=== PATIENT | female | born 1980 | race Caucasian/White ===

== ENCOUNTER 2017-01-18 15:38 | Inpatient (IN) | payer MEDICARE ==
[~2017-01-18] VITALS: Ht 157.5 cm; Wt 67.0 kg
[~2017-01-18 15:38] MED LIST: ADDERALL30 MG OR; AMOXICILLIN500 MG PO; BACTRIM DS1 TAB PO; CELEXA40 M1 OR; CIPROFLOXACN500 MG OR; CIPROFLOXACN500 MG PO; CLEOCIN150 MG PO; DENIES CURRENT MEDS; DOXYCYCL HYC100 MG PO; FERROUS SULF324 M1 PO; FLEXERIL OR; IBUPROFEN600 MG PO; KEFLEX500 M1 PO; LISINOP/HCTZ1 TA1 PO; LISINOPRIL10 M1 PO; LORTAB 10-325 M1 TAB PO; LORTAB 1010 MG PO; LORTAB 5/3255 MG PO; LORTAB 7.5 OR; LOTENSIN5 MG OR; METRONIDAZOL250 MG PO; NAPROSYN375 MG PO; NAPROSYN500 MG OR; NO; PERCOCET 5/325M1 TAB OR; PERCOCET 5/325M1 TAB PO; PREMARIN VAG0.625 MG PO; RIFADIN300 MG PO; ROCEPHIN 2250 MG/VIA IM; TORADOL OR; TRAMADOL HCL50 MG PO; ULTRAM50 M1 PO; ULTRAM50 MG OR; VISTARIL25 MG OR; XANAX0.5 MG OR
[2017-01-18 16:33] LABS: HEMATOCRIT 42.7 % (37.0-47.0); HEMOGLOBIN 13.7 g/dl (12.0-16.0); IMMATURE GRANULOCYTES 0.8 % (0.0-1.0); MEAN CORPUSCULAR HGB 29.5 pG CALC (26.0-32.0); MEAN CORPUSCULAR HGB CONC 32.1 g/L CALC (32.0-36.0); NEUT# 10.82 thou/uL (2.00-7.15); RED BLOOD COUNT 4.64 mill/uL (4.20-5.60); RED CELL DISTRI WIDTH 17.9 % (11.5-15.5)
[2017-01-18 16:39] LABS: URINE BILIRUBIN - DIPSTICK NEGATIVE (NEGATIVE); URINE BLOOD DIPSTICK LARGE (NEGATIVE); URINE CLARITY CLOUDY; URINE COLOR AMBER; URINE GLUCOSE - DIPSTICK NEGATIVE (NEGATIVE); URINE KETONE NEGATIVE (NEGATIVE); URINE LEUK ESTERASE MODERATE (NEGATIVE); URINE NITRITE - DIPSTICK POSITIVE (Negative); URINE PROTEIN - DIPSTICK 100 mg/dL (NEG-TRACE); URINE RBC 25-50 RBC/hpf (0-5); URINE SPECIFIC GRAVITY 1.025
[2017-01-18 16:40] LABS: URINE BACTERIA MANY hpf; URINE SQUAMOUS EPITHELIAL CELL FEW EPI/hpf (0-FEW); URINE WBC 20-50 WBC/hpf (0-5)
[2017-01-18 16:57] LABS: ALBUMIN 3.9 g/dL (3.2-5.0); ALKALINE PHOSPHATASE 132 u/l (38-126); ANION GAP 16 (6-22 (CALC)); BILIRUBIN, TOTAL 1.5 mg/dL (0.0-1.4); BUN 8 mg/dL (7-17); BUN/CREATININE RATIO 9 (12-20 (CALC)); CALCIUM 8.6 mg/dL (8.4-10.2); CARBON DIOXIDE 23 mmol/l (22-30); CHLORIDE 94 mmol/l (95-108); CREATININE 0.9 mg/dL (0.5-1.0); GFR > 60 ML/MIN (>=60 (CALC)); GFR FOR AFR.AMER. > 60 ML/MIN (>=60 (CALC)); GLUCOSE 219 mg/dL (65-105); POTASSIUM 4.1 mmol/l (3.5-5.1); SGOT/AST 118 u/l (14-36); SGPT/ALT 31 u/l (9-52); SODIUM 128 mmol/l (137-146)
[2017-01-18] MEDS ORDERED: MOTRIN800 MG PO (17:10)
[2017-01-18] MEDS ORDERED: PYRIDIUM200 MG PO (17:10)
[2017-01-18] MEDS ORDERED: BACTRIM DS1 TAB PO (17:10)
[2017-01-18 18:27] LABS: COCAINE NEGATIVE (NEGATIVE); METHADONE NEGATIVE (NEGATIVE); TETRAHYDROCANNABIONOL NEGATIVE (NEGATIVE)
[2017-01-18 18:28] LABS: BARBITURATES NEGATIVE (NEGATIVE); OXCYCODONE NEGATIVE (NEGATIVE); TRICYLIC ANTIDEPRESSANTS NEGATIVE (NEGATIVE)
[2017-01-18 19:20] VITALS: BP 132/94
[2017-01-19 04:30] VITALS: BP 152/86
[2017-01-19 05:23] LABS: BUN 9 mg/dL (7-17); BUN/CREATININE RATIO 13 (12-20 (CALC)); CALCIUM 8.3 mg/dL (8.4-10.2); CARBON DIOXIDE 22 mmol/l (22-30); CREATININE 0.7 mg/dL (0.5-1.0); GFR > 60 ML/MIN (>=60 (CALC)); GFR FOR AFR.AMER. > 60 ML/MIN (>=60 (CALC)); GLUCOSE 139 mg/dL (65-105); POTASSIUM 3.8 mmol/l (3.5-5.1)
[2017-01-19 05:25] LABS: HEMATOCRIT 39.3 % (37.0-47.0); HEMOGLOBIN 12.4 g/dl (12.0-16.0); MEAN CELL VOLUME 95.6 fL CALC (80.0-100.0); MEAN CORPUSCULAR HGB 30.2 pG CALC (26.0-32.0); MEAN CORPUSCULAR HGB CONC 31.6 g/L CALC (32.0-36.0); RED BLOOD COUNT 4.11 mill/uL (4.20-5.60)
[2017-01-19 05:27] LABS: ANION GAP 15 (6-22 (CALC)); CHLORIDE 106 mmol/l (95-108); SODIUM 139 mmol/l (137-146)
[2017-01-19 07:48] VITALS: BP 207/103
[2017-01-19 13:02] VITALS: BP 138/89
[2017-01-19 16:15] VITALS: BP 137/92
[2017-01-19 19:35] VITALS: BP 154/99
[2017-01-19 23:48] VITALS: BP 140/92
[2017-01-20 03:18] VITALS: BP 148/98
[2017-01-20 06:21] LABS: HEMATOCRIT 32.1 % (37.0-47.0); HEMOGLOBIN 10.4 g/dl (12.0-16.0); MEAN CORPUSCULAR HGB 30.8 pG CALC (26.0-32.0); MEAN CORPUSCULAR HGB CONC 32.4 g/L CALC (32.0-36.0); NEUT# 2.34 thou/uL (2.00-7.15); RED BLOOD COUNT 3.38 mill/uL (4.20-5.60)
[2017-01-20 06:48] LABS: ANION GAP 13 (6-22 (CALC)); BUN 8 mg/dL (7-17); BUN/CREATININE RATIO 12 (12-20 (CALC)); CALCIUM 8.7 mg/dL (8.4-10.2); CARBON DIOXIDE 25 mmol/l (22-30); CHLORIDE 106 mmol/l (95-108); CREATININE 0.6 mg/dL (0.5-1.0); GFR > 60 ML/MIN (>=60 (CALC)); GFR FOR AFR.AMER. > 60 ML/MIN (>=60 (CALC)); GLUCOSE 104 mg/dL (65-105); POTASSIUM 3.7 mmol/l (3.5-5.1); SODIUM 139 mmol/l (137-146)
[2017-01-20 06:53] LABS: IMMATURE GRANULOCYTES 1.4 % (0.0-1.0)
[2017-01-20 07:47] VITALS: BP 220/110
[2017-01-20 08:25] VITALS: BP 174/80
[2017-01-20 09:40] VITALS: BP 158/92
[2017-01-20] MEDS ORDERED: LISINOPRIL10 M1 PO (10:41)
[2017-01-20] MEDS ORDERED: ROCEPHIN 2 GM2 GM IV (10:41)
[2017-01-20] MEDS ORDERED: LIBRIUM25 M1 PO (10:41)
== END 2017-01-20 11:25 | disposition home or self-care (01) | DRG 872 ==
LOC: ENPENDDIS → ED 15:38 → ED-I 17:40 → ED 18:03 → MS2 18:04 → ED 18:04 → MS2 18:04 → UNDODEPER 01-20 19:20
PROVIDERS: Emergency Medicine; Internal Medicine; ADMIT Internal Medicine; ATTEND Internal Medicine
DX: A41.51 Sepsis due to Escherichia coli [E. coli] (principal); E87.1 Hypo-osmolality and hyponatremia; N10 Acute pyelonephritis; F10.239 Alcohol dependence with withdrawal, unspecified; F31.9 Bipolar disorder, unspecified; M19.90 Unspecified osteoarthritis, unspecified site; M79.7 Fibromyalgia; D25.9 Leiomyoma of uterus, unspecified; F41.9 Anxiety disorder, unspecified; F42.9 Obsessive-compulsive disorder, unspecified; F90.9 Attention-deficit hyperactivity disorder, unspecified type; I16.0 Hypertensive urgency; I10 Essential (primary) hypertension; F15.10 Other stimulant abuse, uncomplicated
CPT/HCPCS: G0378; J1650; Q9967

== ENCOUNTER 2018-02-26 11:33 | Emergency (ER) | payer MEDICARE ==
[~2018-02-26] VITALS: Ht 157.5 cm; Wt 75.0 kg
[~2018-02-26 11:33] MED LIST changes: +LIBRIUM25 M1 PO; +MOTRIN800 MG PO; +PYRIDIUM200 MG PO; +ROCEPHIN 2 GM2 GM IV
[2018-02-26] MEDS ORDERED: ZESTRIL10 M1 PO (12:25)
[2018-02-26 13:16] VITALS: BP 188/78
== END 2018-02-26 13:00 | disposition home or self-care (01) ==
LOC: ED 11:33
DX: S81.852D Open bite, left lower leg, subsequent encounter (principal); W54.0XXD Bitten by dog, subsequent encounter; I10 Essential (primary) hypertension; F10.10 Alcohol abuse, uncomplicated; Z91.14 Patient's other noncompliance with medication regimen

== ENCOUNTER 2018-03-06 19:30 | Observation (INO) | payer MEDICARE ==
[~2018-03-06] VITALS: Ht 157.5 cm; Wt 71.3 kg
[~2018-03-06 19:30] MED LIST changes: +ZESTRIL10 M1 PO
[2018-03-06 20:17] LABS: IMMATURE GRANULOCYTES 0.3 % (0.0-1.0); MEAN CORPUSCULAR HGB 23.9 pG CALC (26.0-32.0); MEAN CORPUSCULAR HGB CONC 29.9 g/L CALC (32.0-36.0); NEUT# 8.18 thou/uL (2.00-7.15); RED BLOOD COUNT 5.85 mill/uL (4.20-5.60); RED CELL DISTRI WIDTH 19.2 % (11.5-15.5)
[2018-03-06 20:22] LABS: HEMATOCRIT 46.8 % (37.0-47.0)
[2018-03-06 20:29] LABS: ALBUMIN 4.2 g/dL (3.2-5.0); ANION GAP 17 (6-22 (CALC)); BUN 15 mg/dL (7-17); BUN/CREATININE RATIO 14 (12-20 (CALC)); CARBON DIOXIDE 23 mmol/l (22-30); CHLORIDE 104 mmol/l (95-108); CREATININE 1.1 mg/dL (0.5-1.0); ETHYL ALCOHOL 46 mg/dl (0-30); GFR 56 ML/MIN (>=60 (CALC)); GFR FOR AFR.AMER. > 60 ML/MIN (>=60 (CALC)); SGOT/AST 59 u/l (14-36); SGPT/ALT 51 u/l (9-52); SODIUM 140 mmol/l (137-146); TOTAL PROTEIN 7.3 g/dL (6.3-8.2)
[2018-03-06 20:38] LABS: ALKALINE PHOSPHATASE 200 u/l (38-126)
[2018-03-06 20:40] LABS: MYOGLOBIN 43 ng/mL (0 - 62)
[2018-03-06 20:54] LABS: URINE BILIRUBIN - DIPSTICK NEGATIVE (NEGATIVE); URINE BLOOD DIPSTICK TRACE-INTACT (NEGATIVE); URINE COLOR YELLOW; URINE GLUCOSE - DIPSTICK NEGATIVE (NEGATIVE); URINE KETONE TRACE mg/dL (NEGATIVE); URINE NITRITE - DIPSTICK NEGATIVE (Negative); URINE PROTEIN - DIPSTICK TRACE mg/dL (NEG-TRACE); URINE SPECIFIC GRAVITY 1.025; URINE UROBILINOGEN - DIPSTICK 0.2 E.U./dL (0.2)
[2018-03-06 20:55] LABS: URINE CLARITY CLOUDY; URINE LEUK ESTERASE MODERATE (NEGATIVE)
[2018-03-06 20:58] LABS: BARBITURATES NEGATIVE (NEGATIVE); COCAINE NEGATIVE (NEGATIVE); METHADONE NEGATIVE (NEGATIVE); OXCYCODONE NEGATIVE (NEGATIVE); TETRAHYDROCANNABIONOL NEGATIVE (NEGATIVE); TRICYLIC ANTIDEPRESSANTS NEGATIVE (NEGATIVE)
[2018-03-06 20:59] LABS: URINE SQUAMOUS EPITHELIAL CELL FEW EPI/hpf (0-FEW); URINE WBC >100 WBC/hpf (0-5)
[2018-03-06 21:00] LABS: URINE BACTERIA FEW hpf
[2018-03-06 22:08] VITALS: BP 143/100
[2018-03-07 04:00] VITALS: BP 141/110
[2018-03-07 07:37] VITALS: BP 144/104
[2018-03-07 08:48] LABS: HEMATOCRIT 45.4 % (37.0-47.0); HEMOGLOBIN 13.2 g/dl (12.0-16.0); IMMATURE GRANULOCYTES 0.6 % (0.0-1.0); MEAN CELL VOLUME 81.9 fL CALC (80.0-100.0); MEAN CORPUSCULAR HGB 23.8 pG CALC (26.0-32.0); MEAN CORPUSCULAR HGB CONC 29.1 g/L CALC (32.0-36.0); NEUT# 7.11 thou/uL (2.00-7.15); RED BLOOD COUNT 5.54 mill/uL (4.20-5.60); RED CELL DISTRI WIDTH 19.3 % (11.5-15.5)
[2018-03-07 08:51] LABS: ANION GAP 15 (6-22 (CALC)); BUN 18 mg/dL (7-17); BUN/CREATININE RATIO 19 (12-20 (CALC)); CALCULATED LDLCHOLESTEROL 73 mg/dL (62-129 (CALC)); CARBON DIOXIDE 21 mmol/l (22-30); CHLORIDE 107 mmol/l (95-108); CHOLESTEROL HDL RATIO 3.4 (<4.4 (CALC)); GFR > 60 ML/MIN (>=60 (CALC)); GFR FOR AFR.AMER. > 60 ML/MIN (>=60 (CALC)); HDL CHOLESTEROL 42 mg/dL (>=40); MAGNESIUM 1.8 mg/dL (1.6-2.3); POTASSIUM 4.2 mmol/l (3.5-5.1); SODIUM 140 mmol/l (137-146); TOTAL CHOLESTEROL 143 mg/dl (0-199); TOTAL TRIGLYCERIDES 140 mg/dl (30-149); VLDL CHOLESTROL 28 mg/dl (1-41 (CALC))
[2018-03-07 10:43] VITALS: BP 159/103
[2018-03-07] MEDS ORDERED: KEFLEX500 MG PO (11:57)
[2018-03-07] MEDS ORDERED: ZESTRIL10 M1 PO (11:57)
[2018-03-07 12:35] VITALS: BP 132/94
== END 2018-03-07 15:10 | disposition home or self-care (01) ==
LOC: ED 19:30 → ED-I 21:06 → MS2 21:27 → ED 21:27 → MS2 21:27
PROVIDERS: Emergency Medicine; Nurse Practitioner Family; ADMIT Internal Medicine; ATTEND Internal Medicine
PROC: 3E0234Z Introduction of Serum, Toxoid and Vaccine into Muscle, Percutaneous Approach (ICD-10-PCS; principal; 2018-03-07)
DX: I16.0 Hypertensive urgency (principal); I10 Essential (primary) hypertension; N17.9 Acute kidney failure, unspecified; E86.0 Dehydration; R94.31 Abnormal electrocardiogram [ECG] [EKG]; N39.0 Urinary tract infection, site not specified; H93.11 Tinnitus, right ear; F10.20 Alcohol dependence, uncomplicated; M79.7 Fibromyalgia; F15.10 Other stimulant abuse, uncomplicated; F13.10 Sedative, hypnotic or anxiolytic abuse, uncomplicated; F31.9 Bipolar disorder, unspecified; B96.20 Unspecified Escherichia coli [E. coli] as the cause of diseases classified elsewhere; Z91.14 Patient's other noncompliance with medication regimen; Z23 Encounter for immunization; Z87.440 Personal history of urinary (tract) infections

== ENCOUNTER 2019-03-27 11:56 | Emergency (ER) | payer OTHER, MEDICARE ==
[~2019-03-27] VITALS: Ht 160 cm; Wt 65.5 kg
[~2019-03-27 11:56] MED LIST changes: +KEFLEX500 MG PO
[2019-03-27] MEDS ORDERED: CIPROFLOXACIN500 M1 PO (12:22)
[2019-03-27] MEDS ORDERED: ONDANSETRON4 MG PO (12:22)
[2019-03-27] MEDS ORDERED: METRONIDAZOL500 MG PO (12:22)
[2019-03-27 13:56] LABS: HEMATOCRIT 41.1 % (37.0-47.0); HEMOGLOBIN 13.3 g/dl (12.0-16.0); IMMATURE GRANULOCYTES 1.2 % (0.0-5.0); MEAN CORPUSCULAR HGB 30.4 pG CALC (26.0-32.0); MEAN CORPUSCULAR HGB CONC 32.4 g/L CALC (32.0-36.0); NEUT# 9.33 thou/uL (2.00-7.15); RED BLOOD COUNT 4.37 mill/uL (4.20-5.60); RED CELL DISTRI WIDTH 17.1 % (11.5-15.5)
[2019-03-27 13:57] LABS: MEAN CELL VOLUME 94.1 fL CALC (80.0-100.0)
[2019-03-27 14:11] LABS: ALKALINE PHOSPHATASE 164 u/l (38-126); BILIRUBIN, TOTAL 1.4 mg/dL (0.0-1.4); BUN 15 mg/dL (7-17); BUN/CREATININE RATIO 14 (12-20 (CALC)); CHLORIDE 97 mmol/l (95-108); CREATININE 1.1 mg/dL (0.5-1.0); ETHYL ALCOHOL 0 mg/dl (0-30); GFR 56 ML/MIN (>=60 (CALC)); GFR FOR AFR.AMER. > 60 ML/MIN (>=60 (CALC)); LIPASE 164 u/l (23-300); MAGNESIUM 1.5 mg/dL (1.6-2.3); SGOT/AST 45 u/l (14-36); SODIUM 136 mmol/l (137-146); TOTAL PROTEIN 6.3 g/dL (6.3-8.2)
[2019-03-27 14:22] LABS: ALBUMIN 3.2 g/dL (3.2-5.0); ANION GAP 14 (6-22 (CALC)); CARBON DIOXIDE 28 mmol/l (22-30); POTASSIUM 3.1 mmol/l (3.5-5.1)
[2019-03-27 15:05] LABS: URINE BILIRUBIN - DIPSTICK NEGATIVE (NEGATIVE); URINE BLOOD DIPSTICK NEGATIVE (NEGATIVE); URINE COLOR YELLOW; URINE GLUCOSE - DIPSTICK NEGATIVE (NEGATIVE); URINE KETONE NEGATIVE (NEGATIVE); URINE LEUK ESTERASE SMALL (Negative); URINE NITRITE - DIPSTICK POSITIVE (Negative); URINE PH 6.5 (4.5-8.0); URINE PROTEIN - DIPSTICK NEGATIVE (NEG-TRACE); URINE SPECIFIC GRAVITY 1.025
[2019-03-27 15:08] LABS: BARBITURATES NEGATIVE (NEGATIVE); COCAINE NEGATIVE (NEGATIVE); METHADONE NEGATIVE (NEGATIVE); OXCYCODONE NEGATIVE (NEGATIVE); TETRAHYDROCANNABIONOL NEGATIVE (NEGATIVE); TRICYLIC ANTIDEPRESSANTS NEGATIVE (NEGATIVE)
[2019-03-27] MEDS ORDERED: HYZAAR1 TA1 PO (15:08)
[2019-03-27 15:09] LABS: URINE CLARITY SL CLOUDY
[2019-03-27 15:24] LABS: URINE BACTERIA MODERATE hpf; URINE SQUAMOUS EPITHELIAL CELL FEW EPI/hpf (0-FEW)
[2019-03-27] MEDS ORDERED: HYDROCO/APAP1 TA9 PO (16:26)
[2019-03-27 16:47] VITALS: BP 127/90
== END 2019-03-27 17:02 | disposition home or self-care (01) | DRG 700 ==
LOC: ED 11:56
DX: S37.022A Major contusion of left kidney, initial encounter (principal); I99.9 Unspecified disorder of circulatory system; I10 Essential (primary) hypertension; V89.2XXA Person injured in unspecified motor-vehicle accident, traffic, initial encounter
CPT/HCPCS: Q9967

== ENCOUNTER 2019-06-17 17:18 | Emergency (ER) | payer MEDICARE ==
[~2019-06-17] VITALS: Ht 160 cm; Wt 86.4 kg
[~2019-06-17 17:18] MED LIST changes: +CIPROFLOXACIN500 M1 PO; +HYDROCO/APAP1 TA9 PO; +HYZAAR1 TA1 PO; +METRONIDAZOL500 MG PO; +ONDANSETRON4 MG PO
[2019-06-17 18:03] LABS: HEMATOCRIT 44.7 % (37.0-47.0); HEMOGLOBIN 14.1 g/dl (12.0-16.0); IMMATURE GRANULOCYTES 0.5 % (0.0-5.0); MEAN CELL VOLUME 89.2 fL CALC (80.0-100.0); MEAN CORPUSCULAR HGB 28.1 pG CALC (26.0-32.0); MEAN CORPUSCULAR HGB CONC 31.5 g/L CALC (32.0-36.0); NEUT# 7.49 thou/uL (2.00-7.15); RED BLOOD COUNT 5.01 mill/uL (4.20-5.60); RED CELL DISTRI WIDTH 18.4 % (11.5-15.5)
[2019-06-17 18:16] LABS: ALBUMIN 3.4 g/dL (3.2-5.0); BILIRUBIN, TOTAL 1.4 mg/dL (0.0-1.4); BUN 21 mg/dL (7-17); BUN/CREATININE RATIO 15 (12-20 (CALC)); CHLORIDE 99 mmol/l (95-108); CREATININE 1.4 mg/dL (0.5-1.0); ETHYL ALCOHOL 46 mg/dl (0-30); GFR 42 ML/MIN (>=60 (CALC)); GFR FOR AFR.AMER. 51 ML/MIN (>=60 (CALC)); LIPASE 210 u/l (23-300); SGOT/AST 32 u/l (14-36); SODIUM 131 mmol/l (137-146); TOTAL PROTEIN 6.8 g/dL (6.3-8.2)
[2019-06-17 18:17] LABS: ALKALINE PHOSPHATASE 262 u/l (38-126); ANION GAP 19 (6-22 (CALC)); CARBON DIOXIDE 17 mmol/l (22-30); POTASSIUM 3.9 mmol/l (3.5-5.1)
[2019-06-17 18:23] LABS: PROTHROMBIN TIME 13.4 SECONDS (9.0-12.5)
[2019-06-17 18:29] LABS: INTERNATIONAL NORMALIZED RATIO 1.3 RATIO (0.7-1.3)
[2019-06-17 18:30] LABS: URINE BILIRUBIN - DIPSTICK NEGATIVE (NEGATIVE); URINE BLOOD DIPSTICK NEGATIVE (NEGATIVE); URINE COLOR YELLOW; URINE GLUCOSE - DIPSTICK NEGATIVE (NEGATIVE); URINE KETONE NEGATIVE (NEGATIVE); URINE PROTEIN - DIPSTICK NEGATIVE (NEG-TRACE); URINE UROBILINOGEN - DIPSTICK 0.2 E.U./dL (0.2)
[2019-06-17 18:34] LABS: URINE LEUK ESTERASE MODERATE (NEGATIVE); URINE NITRITE - DIPSTICK POSITIVE (Negative)
[2019-06-17 18:35] LABS: BARBITURATES NEGATIVE (NEGATIVE); COCAINE NEGATIVE (NEGATIVE); METHADONE NEGATIVE (NEGATIVE); OXCYCODONE NEGATIVE (NEGATIVE); TETRAHYDROCANNABIONOL NEGATIVE (NEGATIVE); TRICYLIC ANTIDEPRESSANTS NEGATIVE (NEGATIVE)
[2019-06-17 18:44] VITALS: BP 132/88
[2019-06-17 18:53] LABS: URINE BACTERIA MANY hpf; URINE SQUAMOUS EPITHELIAL CELL FEW EPI/hpf (0-FEW); URINE WBC TNTC WBC/hpf (0-5)
== END 2019-06-17 19:25 | disposition short-term general hospital (02) ==
LOC: ED 17:18
DX: I21.4 Non-ST elevation (NSTEMI) myocardial infarction (principal); N39.0 Urinary tract infection, site not specified; L03.116 Cellulitis of left lower limb; L03.115 Cellulitis of right lower limb; F15.129 Other stimulant abuse with intoxication, unspecified; F10.129 Alcohol abuse with intoxication, unspecified; I10 Essential (primary) hypertension; T46.5X6A Underdosing of other antihypertensive drugs, initial encounter; Z91.128 Patient's intentional underdosing of medication regimen for other reason; B96.20 Unspecified Escherichia coli [E. coli] as the cause of diseases classified elsewhere

== ENCOUNTER 2019-08-14 17:01 | Inpatient (IN) | payer MEDICARE ==
[~2019-08-14] VITALS: Ht 162.6 cm; Wt 69.1 kg
[2019-08-14] MEDS ORDERED: LISINOP/HCTZ1 TAB PO (17:19)
[2019-08-14 17:48] LABS: HCG SERUM/URINE (NEG/POS) NEGATIVE (NEGATIVE)
[2019-08-14 17:54] LABS: CREATININE 1.5 mg/dL (0.5-1.0); TOTAL PROTEIN 7.9 g/dL (6.3-8.2)
[2019-08-14 17:55] LABS: ALBUMIN 4.2 g/dL (3.2-5.0); BILIRUBIN, TOTAL 3.4 mg/dL (0.0-1.4); POTASSIUM 5.2 mmol/l (3.5-5.1)
[2019-08-14 18:11] LABS: HEMATOCRIT 43.5 % (37.0-47.0); HEMOGLOBIN 13.4 g/dl (12.0-16.0); IMMATURE GRANULOCYTES 1.3 % (0.0-5.0); MEAN CORPUSCULAR HGB 24.7 pG CALC (26.0-32.0); MEAN CORPUSCULAR HGB CONC 30.8 g/L CALC (32.0-36.0); NEUT# 6.44 thou/uL (2.00-7.15); RED BLOOD COUNT 5.42 mill/uL (4.20-5.60); RED CELL DISTRI WIDTH 21.1 % (11.5-15.5)
[2019-08-14 18:27] LABS: MEAN CELL VOLUME 80.3 fL CALC (80.0-100.0)
[2019-08-14 20:00] VITALS: BP 119/81
[2019-08-14 21:37] LABS: URINE BILIRUBIN - DIPSTICK NEGATIVE (NEGATIVE); URINE BLOOD DIPSTICK NEGATIVE (NEGATIVE); URINE COLOR YELLOW; URINE GLUCOSE - DIPSTICK NEGATIVE (NEGATIVE); URINE KETONE NEGATIVE (NEGATIVE); URINE LEUK ESTERASE NEGATIVE (NEGATIVE); URINE NITRITE - DIPSTICK NEGATIVE (Negative); URINE PH 5.5 (4.5-8.0); URINE PROTEIN - DIPSTICK 30 mg/dL (NEG-TRACE); URINE SPECIFIC GRAVITY >=1.030; URINE UROBILINOGEN - DIPSTICK 0.2 E.U./dL (0.2)
[2019-08-14 21:42] LABS: BARBITURATES NEGATIVE (NEGATIVE); COCAINE NEGATIVE (NEGATIVE); METHADONE NEGATIVE (NEGATIVE); OXCYCODONE NEGATIVE (NEGATIVE); TETRAHYDROCANNABIONOL NEGATIVE (NEGATIVE); TRICYLIC ANTIDEPRESSANTS NEGATIVE (NEGATIVE)
[2019-08-14 21:54] LABS: URINE RBC 0-2 RBC/hpf (0-5); URINE SQUAMOUS EPITHELIAL CELL MODERATE EPI/hpf (0-FEW); URINE WBC 0-2 WBC/hpf (0-5)
[2019-08-14 23:50] VITALS: BP 152/96
[2019-08-15] VITALS (7 sets, daily range): BP systolic 135–168; BP diastolic 20–116
[2019-08-15 09:00] LABS: HEMATOCRIT 44.7 % (37.0-47.0); HEMOGLOBIN 13.6 g/dl (12.0-16.0); MEAN CELL VOLUME 82.2 fL CALC (80.0-100.0); MEAN CORPUSCULAR HGB CONC 30.4 g/L CALC (32.0-36.0); NEUT# 5.59 thou/uL (2.00-7.15); RED BLOOD COUNT 5.44 mill/uL (4.20-5.60); RED CELL DISTRI WIDTH 21.2 % (11.5-15.5)
[2019-08-15 10:05] LABS: ANION GAP 18 (6-22 (CALC)); BUN 24 mg/dL (7-17); BUN/CREATININE RATIO 21 (12-20 (CALC)); CALCULATED LDLCHOLESTEROL 77 mg/dL (62-129 (CALC)); CHLORIDE 100 mmol/l (95-108); CHOLESTEROL HDL RATIO 5.2 (<4.4 (CALC)); CREATININE 1.2 mg/dL (0.5-1.0); GFR 51 ML/MIN (>=60 (CALC)); GFR FOR AFR.AMER. > 60 ML/MIN (>=60 (CALC)); HDL CHOLESTEROL 25 mg/dL (>=40); MAGNESIUM 1.7 mg/dL (1.6-2.3); POTASSIUM 5.1 mmol/l (3.5-5.1); SODIUM 132 mmol/l (137-146); TOTAL CHOLESTEROL 130 mg/dl (0-199); TOTAL TRIGLYCERIDES 141 mg/dl (30-149); VLDL CHOLESTROL 28 mg/dl (1-41 (CALC))
[2019-08-15 10:06] LABS: CARBON DIOXIDE 19 mmol/l (22-30)
[2019-08-15] MEDS ORDERED: ZESTRIL10 M1 PO (13:15)
[2019-08-15] MEDS ORDERED: FUROSEMIDE20 MG PO (13:15)
[2019-08-15] MEDS ORDERED: ELIQUIS5 MG PO (13:16)
[2019-08-15] MEDS ORDERED: LOPRESSOR50 M1 PO (13:17)
[2019-08-16] VITALS (9 sets, daily range): BP systolic 125–175; BP diastolic 90–123
[2019-08-17] VITALS (19 sets, daily range): BP systolic 115–142; BP diastolic 77–106
[2019-08-17 04:01] LABS: HEMATOCRIT 47.6 % (37.0-47.0); HEMOGLOBIN 13.7 g/dl (12.0-16.0); IMMATURE GRANULOCYTES 2.1 % (0.0-5.0); MEAN CELL VOLUME 86.9 fL CALC (80.0-100.0); MEAN CORPUSCULAR HGB CONC 28.8 g/L CALC (32.0-36.0); NEUT# 7.48 thou/uL (2.00-7.15); RED BLOOD COUNT 5.48 mill/uL (4.20-5.60); RED CELL DISTRI WIDTH 21.6 % (11.5-15.5)
[2019-08-17 04:13] LABS: BUN 17 mg/dL (7-17); BUN/CREATININE RATIO 16 (12-20 (CALC)); CHLORIDE 104 mmol/l (95-108); CREATININE 1.1 mg/dL (0.5-1.0); GFR 56 ML/MIN (>=60 (CALC)); GFR FOR AFR.AMER. > 60 ML/MIN (>=60 (CALC)); MAGNESIUM 1.9 mg/dL (1.6-2.3); SODIUM 131 mmol/l (137-146)
[2019-08-17 04:20] LABS: ANION GAP 20 (6-22 (CALC)); CARBON DIOXIDE 14 mmol/l (22-30); POTASSIUM 7.1 mmol/l (3.5-5.1)
[2019-08-17 06:15] LABS: POTASSIUM 5.6 mmol/l (3.5-5.1)
[2019-08-18] VITALS (11 sets, daily range): BP systolic 108–149; BP diastolic 72–113
[2019-08-18 05:42] LABS: HEMATOCRIT 47.8 % (37.0-47.0); HEMOGLOBIN 13.9 g/dl (12.0-16.0); MEAN CELL VOLUME 84.8 fL CALC (80.0-100.0); MEAN CORPUSCULAR HGB 24.6 pG CALC (26.0-32.0); MEAN CORPUSCULAR HGB CONC 29.1 g/L CALC (32.0-36.0); RED BLOOD COUNT 5.64 mill/uL (4.20-5.60); RED CELL DISTRI WIDTH 21.7 % (11.5-15.5)
[2019-08-18 06:12] LABS: ANION GAP 19 (6-22 (CALC)); BUN 20 mg/dL (7-17); BUN/CREATININE RATIO 20 (12-20 (CALC)); CHLORIDE 101 mmol/l (95-108); GFR > 60 ML/MIN (>=60 (CALC)); GFR FOR AFR.AMER. > 60 ML/MIN (>=60 (CALC)); POTASSIUM 4.7 mmol/l (3.5-5.1); SODIUM 135 mmol/l (137-146)
[2019-08-18 06:13] LABS: CARBON DIOXIDE 20 mmol/l (22-30)
[2019-08-18 12:26] LABS: PROTHROMBIN TIME 17.1 SECONDS (9.0-12.5)
[2019-08-18 12:54] LABS: INTERNATIONAL NORMALIZED RATIO 1.7 RATIO (0.7-1.3)
[2019-08-19] VITALS (12 sets, daily range): BP systolic 97–160; BP diastolic 52–118
[2019-08-19 05:55] LABS: URINE BLOOD DIPSTICK LARGE (NEGATIVE); URINE GLUCOSE - DIPSTICK NEGATIVE (NEGATIVE); URINE KETONE NEGATIVE (NEGATIVE); URINE LEUK ESTERASE TRACE (NEGATIVE); URINE PH 5.5 (4.5-8.0); URINE PROTEIN - DIPSTICK 30 mg/dL (NEG-TRACE); URINE SPECIFIC GRAVITY 1.025
[2019-08-19 06:02] LABS: HEMATOCRIT 44.7 % (37.0-47.0); HEMOGLOBIN 13.1 g/dl (12.0-16.0); IMMATURE GRANULOCYTES 1.5 % (0.0-5.0); MEAN CELL VOLUME 84.2 fL CALC (80.0-100.0); MEAN CORPUSCULAR HGB 24.7 pG CALC (26.0-32.0); MEAN CORPUSCULAR HGB CONC 29.3 g/L CALC (32.0-36.0); NEUT# 8.02 thou/uL (2.00-7.15); RED BLOOD COUNT 5.31 mill/uL (4.20-5.60); RED CELL DISTRI WIDTH 21.4 % (11.5-15.5)
[2019-08-19 06:06] LABS: URINE BILIRUBIN - DIPSTICK NEGATIVE (NEGATIVE); URINE COLOR RED
[2019-08-19 06:07] LABS: URINE NITRITE - DIPSTICK NEGATIVE (Negative); URINE RBC TNTC RBC/hpf (0-5)
[2019-08-19 06:08] LABS: URINE BACTERIA FEW hpf; URINE EPITHELIAL CELLS FEW EPI/hpf (0-FEW)
[2019-08-19 06:29] LABS: ANION GAP 16 (6-22 (CALC)); BUN 20 mg/dL (7-17); BUN/CREATININE RATIO 22 (12-20 (CALC)); CARBON DIOXIDE 21 mmol/l (22-30); CHLORIDE 102 mmol/l (95-108); CREATININE 0.9 mg/dL (0.5-1.0); GFR > 60 ML/MIN (>=60 (CALC)); GFR FOR AFR.AMER. > 60 ML/MIN (>=60 (CALC)); POTASSIUM 4.9 mmol/l (3.5-5.1); SODIUM 134 mmol/l (137-146)
[2019-08-20] VITALS (14 sets, daily range): BP systolic 97–143; BP diastolic 72–108
[2019-08-20 05:06] LABS: HEMATOCRIT 45.8 % (37.0-47.0); HEMOGLOBIN 13.2 g/dl (12.0-16.0); IMMATURE GRANULOCYTES 1.4 % (0.0-5.0); MEAN CORPUSCULAR HGB 24.5 pG CALC (26.0-32.0); MEAN CORPUSCULAR HGB CONC 28.8 g/L CALC (32.0-36.0); NEUT# 8.12 thou/uL (2.00-7.15); RED BLOOD COUNT 5.39 mill/uL (4.20-5.60); RED CELL DISTRI WIDTH 21.5 % (11.5-15.5)
[2019-08-20 05:26] LABS: ANION GAP 17 (6-22 (CALC)); BUN 20 mg/dL (7-17); BUN/CREATININE RATIO 24 (12-20 (CALC)); CARBON DIOXIDE 20 mmol/l (22-30); CHLORIDE 103 mmol/l (95-108); CREATININE 0.8 mg/dL (0.5-1.0); GFR > 60 ML/MIN (>=60 (CALC)); GFR FOR AFR.AMER. > 60 ML/MIN (>=60 (CALC)); POTASSIUM 4.9 mmol/l (3.5-5.1); SODIUM 135 mmol/l (137-146)
[2019-08-20 16:55] LABS: URINE BLOOD DIPSTICK LARGE (NEGATIVE); URINE GLUCOSE - DIPSTICK NEGATIVE (NEGATIVE); URINE KETONE NEGATIVE (NEGATIVE); URINE LEUK ESTERASE NEGATIVE (NEGATIVE); URINE NITRITE - DIPSTICK NEGATIVE (Negative); URINE PH 5.5 (4.5-8.0); URINE PROTEIN - DIPSTICK 30 mg/dL (NEG-TRACE); URINE SPECIFIC GRAVITY 1.025
[2019-08-20 16:57] LABS: URINE BILIRUBIN - DIPSTICK NEGATIVE (NEGATIVE); URINE COLOR AMBER
[2019-08-20 17:20] LABS: URINE RBC >100 RBC/hpf (0-5); URINE SQUAMOUS EPITHELIAL CELL FEW EPI/hpf (0-FEW)
[2019-08-21] VITALS (10 sets, daily range): BP systolic 99–164; BP diastolic 62–112
[2019-08-21 04:50] LABS: HEMATOCRIT 47.3 % (37.0-47.0); HEMOGLOBIN 13.6 g/dl (12.0-16.0); MEAN CELL VOLUME 84.2 fL CALC (80.0-100.0); MEAN CORPUSCULAR HGB 24.2 pG CALC (26.0-32.0); MEAN CORPUSCULAR HGB CONC 28.8 g/L CALC (32.0-36.0); RED BLOOD COUNT 5.62 mill/uL (4.20-5.60); RED CELL DISTRI WIDTH 21.4 % (11.5-15.5)
[2019-08-21 05:07] LABS: ANION GAP 18 (6-22 (CALC)); BUN 20 mg/dL (7-17); BUN/CREATININE RATIO 22 (12-20 (CALC)); CARBON DIOXIDE 19 mmol/l (22-30); CHLORIDE 101 mmol/l (95-108); CREATININE 0.9 mg/dL (0.5-1.0); GFR > 60 ML/MIN (>=60 (CALC)); GFR FOR AFR.AMER. > 60 ML/MIN (>=60 (CALC)); SODIUM 133 mmol/l (137-146)
[2019-08-21 05:11] LABS: POTASSIUM 5.3 mmol/l (3.5-5.1)
== END 2019-08-21 16:16 | disposition short-term general hospital (02) | DRG 189 ==
LOC: ED 17:01 → ED-I 18:31 → ED 18:45 → MS2 18:46 → ICU 08-17 04:30
PROVIDERS: Internal Medicine; Nurse Practitioner Family; ADMIT Internal Medicine; ATTEND Internal Medicine
DX: J96.21 Acute and chronic respiratory failure with hypoxia (principal); N17.9 Acute kidney failure, unspecified; I42.8 Other cardiomyopathies; E87.1 Hypo-osmolality and hyponatremia; I27.20 Pulmonary hypertension, unspecified; I12.9 Hypertensive chronic kidney disease with stage 1 through stage 4 chronic kidney disease, or unspecified chronic kidney disease; N18.3 Chronic kidney disease, stage 3 (moderate); E86.0 Dehydration; F10.229 Alcohol dependence with intoxication, unspecified; F15.10 Other stimulant abuse, uncomplicated; F14.10 Cocaine abuse, uncomplicated; E87.5 Hyperkalemia; I07.1 Rheumatic tricuspid insufficiency; I37.1 Nonrheumatic pulmonary valve insufficiency; F20.9 Schizophrenia, unspecified; F41.9 Anxiety disorder, unspecified; F31.9 Bipolar disorder, unspecified; F42.9 Obsessive-compulsive disorder, unspecified; D21.9 Benign neoplasm of connective and other soft tissue, unspecified; F90.9 Attention-deficit hyperactivity disorder, unspecified type; M79.7 Fibromyalgia; M19.90 Unspecified osteoarthritis, unspecified site; Y90.6 Blood alcohol level of 120-199 mg/100 ml; Z86.14 Personal history of Methicillin resistant Staphylococcus aureus infection; Z87.440 Personal history of urinary (tract) infections; Z91.19 Patient's noncompliance with other medical treatment and regimen; Z79.01 Long term (current) use of anticoagulants; Z86.718 Personal history of other venous thrombosis and embolism
CPT/HCPCS: J2060